=== PATIENT | male | born 1945 | race Caucasian/White ===

== ENCOUNTER 2019-10-06 11:49 | Inpatient (IN) ==
[2019-10-06 12:53] LABS: ALLEN TEST NO; BE 1.2 mmoll (-3.0-3.0); BLOOD TYPE ARTERIAL; HCO3-(ACT) 25.8 mmoll (20.0-26.0); METHB 0.8 % (0.0-1.5); O2(CT) 20.3 mL/dL (15.0-23.0); O2HB 95.6 % (95.0-99.0); PCO2(98.6) 37 mmHg (35-45); PO2(98.6) 85 mmHg (60-100); SAMPLE BLOOD; SAO2 98.1 % (95.0-100.0); THB 15.1 g/dL (11.5-17.4); pH(98.6) 7.44 (7.35-7.45)
[2019-10-06 12:54] LABS: MODALITY ROOM AIR
--- NOTE | 2019-10-06 13:00 | Diag Imaging Result Doc PS360 ---
EXAM: CHEST-1 VIEW 10/06/2019 HISTORY: shortness of breathing TECHNIQUE: Erect AP upright at 1253 COMMENT: There are bilateral pleural effusions. There are no previous studies. There is atelectasis versus pneumonia in the left lower lobe. IMPRESSION: Bilateral pleural effusions and left lower lobe pneumonia. Electronically signed by Van Mtz 10/06/2019 12:58 PM
[2019-10-06 13:53] LABS: BASO# 0.04 X1000 (0.0-0.2); BASO% 0.5 % (0.0-0.8); EOS# 0.03 X1000 (0.0-0.7); EOS% 0.4 % (0.0-10.0); HEMOGLOBIN 14.2 g/dL (14.0-18.0); LYMPH# 0.83 X1000 (1.2-3.4); LYMPH% 10.2 % (20.5-51.1); MCHC 32.3 g/dL (33-37); MCV 86.6 FL (81-99); MONO# 0.63 X1000 (0.11-0.59); MONO% 7.7 % (1.7-9.3); MPV 11.4 FL (7.4-10.4); NEUT# 6.63 X1000 (1.4-6.5); NEUT% 81.2 % (42.2-75.2); PLT 201 X1000 (130-400); RBC 5.08 XMIL (4.7-6.1); RDW 13.7 % (11.5-14.5); WBC 8.16 X1000 (4.8-10.8)
[2019-10-06 14:16] LABS: AGAP 13; ALB/GLOB RATIO 2.2; ALBUMIN 3.9 g/dL (3.5-5.0); ALKALINE PHOSPHATASE 52 U/L (32-122); BUN 18 mg/dL (8-22); CALCIUM 9.4 mg/dL (8.8-10.2); CHLORIDE 97 mmol/L (98-107); COSMO 278; CREATININE 1.1 mg/dL (0.7-1.2); ESTIMATED GFR > 60; GLUCOSE 138 mg/dL (70-104); GOT 21 U/L (10-34); GPT 18 U/L (10-44); POTASSIUM 5.4 mmol/L (3.5-5.1); SODIUM 137 mmol/L (136-145); TCO2 27 mmol/L (25-35); TOTAL BILIRUBIN 0.52 mg/dL (0.20-1.00); TOTAL PROTEIN 5.7 g/dL (6.3-8.3)
[2019-10-06] MEDS ORDERED: ROCEPHIN 1 GM in NS 50 ML IV ONE (14:27)
[2019-10-06] MEDS ORDERED: LEVAQUIN 500 MG/D5W 500 MG/100 ML IVPB IV ONE (14:28)
[2019-10-06] MEDS ORDERED: LASIX IV ONE ×2 (14:29→16:55)
[2019-10-06] MEDS ORDERED: TOPROL XL PO SCH (15:00)
[2019-10-06] MEDS: ASPIRIN EC PO SCH (15:45)
[2019-10-06] MEDS: MUCINEX DM PO SCH ×2 (15:45→20:40)
--- NOTE | 2019-10-06 15:57 | EKG Report ---
Test Performed on : 10/06/2019 3:29:36 PM Test Reason : elevated troponin Blood Pressure : / mmHG Vent. Rate : 114 BPM Atrial Rate : 114 BPM P-R Int : 162 ms QRS Dur : 086 ms QT Int : 348 ms P-R-T Axes : 066 -08 088 degrees QTc Int : 479 ms Sinus tachycardia. Minimal voltage criteria for LVH, may be normal variant Anterior infarct , age undetermined Abnormal ECG Confirmed by Glenn BUTLER, Cristhian ([id number]) on 10/09/2019 8:24:11 AM
--- NOTE | 2019-10-06 19:53 | ECHO REPORT ---
ORDER DATE: 10/06/2019 INDICATION: A 74-year-old male with chest pain, a patient of Dr. Tsai. M-MODE MEASUREMENTS: Left ventricle end diastole: 6.3. Left ventricle end systole: 6.0. Posterior wall: 0.7. Interventricular septum: 0.7. Left atrium: 3.7. Aortic diameter: 3.0. SUMMARY OF 2-DIMENSIONAL IMAGIN. The study is difficult. The left ventricular chamber is markedly enlarged. Left ventricular systolic function is severely impaired, estimated at 26%. Impairment is lower. 2. The mitral valve shows a moderate degree of regurgitation. 3. Pulsed wave Doppler of mitral inflow shows a pseudonormal pattern with a tall E-wave, short A- wave, and a short deceleration time. 4. Tissue Doppler of septal and lateral mitral annulus averages 4 cm. There is impaired left ventricular relaxation and elevation of left atrial pressure consistent with significant diastolic dysfunction. The tricuspid valve shows a mild to moderate degree of regurgitation. Pulmonary pressure is estimated at 36 to 41 mmHg. 5. The pulmonic valve shows a mild degree of regurgitation. 6. The aortic valve opens normally. Color flow mapping indicates a mild degree of regurgitation. 7. There is no pericardial effusion, no mass, and no thrombus. 8. The left atrium is moderately enlarged. 9. The right-sided chambers are also mildly to moderately enlarged. 10.There is a pleural effusion noted. 11.The aortic valve has 3 cusps. The cardiac output appears to be decreased. Clinical correlation recommended. cc: MD Johnny Manzanares MD
[2019-10-06] MEDS: TOPROL XL PO SCH (20:40)
[2019-10-06] MEDS: LOVENOX SUBQ SCH (20:40)
[2019-10-07 00:35] LABS: URINE SOURCE CLEAN CATCH
[2019-10-07 00:51] LABS: BILIRUBIN URINE NEGATIVE (NEGATIVE); BLOOD URINE NEGATIVE (NEGATIVE); COLOR STRAW; GLUCOSE URINE NEGATIVE (NEGATIVE); KETONE URINE TRACE mg/dL (NEGATIVE); LEUKOCYTES URINE NEGATIVE (NEGATIVE); NITRITE URINE NEGATIVE (NEGATIVE); PH URINE 6.5; PROTEIN URINE NEGATIVE (NEGATIVE); SP GRAVITY URINE 1.012; TURBIDITY URINE CLEAR (CLEAR); UROBILINOGEN URINE NORMAL (NORMAL)
[2019-10-07 00:53] LABS: UR EPITHELIAL CELLS <10 /HPF (<10); URINE BACTERIA NEGATIVE /HPF; URINE RBC <10 /HPF (<10); URINE WBC <10 /HPF (<10)
--- NOTE | 2019-10-07 01:40 | HISTORY AND PHYSICAL ---
HISTORY OF PRESENT ILLNESS: A 74-year-old, white gentleman, came for shortness of breath. The patient was not doing well over 2 weeks. The patient had chest congestion, cough, shortness of breath. The patient went to urgent care. He was told he had mild pneumonia. The patient was given injection and some antibiotics which he was taking. The patient felt some better, but then again, he was getting sick. The patient claims he never got completely well. He was feeling weak. He went back to urgent care, given another round of antibiotics and injection. The patient claims he was not getting his strength back. His oral intake was poor. The patient was getting short of breath with minimal exertion. He came to see me today. I evaluated patient. After detailed history and examination, I decided to admit the patient for further care. The patient was getting short of breath with minimal exertion. The patient did have decreased air entry, bilateral leg swelling, more suggestive of congestive heart failure. The patient claims he had unquantified weight loss, poor appetite. He denied any typical chest pain. No high-grade fever or chills. No nausea or vomiting. No dysuria or hematuria. No dysphagia or odynophagia. No runny nose, stuffy nose, sinus drainage. Denied pleuritic type of chest pain. The patient is vague and poor historian. No hemoptysis, hematemesis, bleeding per rectum. No further history available at this time. ALLERGIES: Prednisone. MEDICATIONS: The patient was on some antibiotics which he did not bring. PAST MEDICAL HISTORY: Recent pneumonia and upper respiratory tract infection. SOCIAL HISTORY: , lives with the . Nonsmoker. Denied alcohol or substance abuse. FAMILY HISTORY: Significant for mother at age 91, with diabetes. She had some heart disease and cancer. The patient had a brother with diabetes, stroke, and pneumonia. PERSONAL HISTORY: . Nonsmoker. Denied alcohol or substance abuse. 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 REVIEW OF SYSTEMS: As per HPI, otherwise unobtainable. PHYSICAL EXAMINATION: GENERAL: Elderly white gentleman in mild distress. VITAL SIGNS: Blood pressure 156/98, pulse 105, respirations 16, temperature 97.6 degrees, O2 saturation was 98%. SKIN: Senile turgor. HEENT: Head atraumatic, normocephalic. Spreckels conjunctivae, anicteric sclerae. Extraocular muscle movement normal. Fundus cannot be penetrated. Good oral hygiene. No tonsillopharyngeal congestion or exudate. Ears and nose benign. NECK: Supple. No JVD, thyromegaly, or lymphadenopathy. CHEST: Bibasilar crepitation. Decreased air entry of both bases. Few inspiratory crepitations, left lower lung field. CARDIOVASCULAR: S1 and S2 heard. No gallop or thrill. ABDOMEN: Soft, globular. Bowel sounds present. EXTREMITIES: No cyanosis, clubbing. Bilateral leg swelling. CENTRAL NERVOUS SYSTEM: Alert, awake, able to move all 4 limbs. MUSCULOSKELETAL: No evidence of acute synovitis. LABORATORY AND DIAGNOSTIC DATA: Hemoglobin 14.2, hematocrit 44, WBC count 8.16, platelet count 201,000. PTT 32. D-dimer was 0.86. Blood gas, pH 7.44, pCO2 of 37, PO2 of 85. Potassium 5.4. Troponin was 0.311, minimally elevated. ProBNP was 5326. Echocardiogram, official result is pending. Chest x-ray revealed bilateral pleural effusion, left lower lobe pneumonia. The patient's EKG revealed sinus tachycardia, minimal voltage criteria for LVH, anterior infarct age undetermined. ASSESSMENT: Patient admitted with chest congestion, shortness of breath. Chest x-ray revealed left lower lobe pneumonia. Other problems include elevated proBNP, shortness of breath, and leg swelling suggestive of uncompensated congestive heart failure most likely systolic. Patient does have elevated troponin. We are going to check serial troponin level to see the trend. Other problems include hypertension. PLAN: Admit the patient. IV antibiotics, pulmonary toilet, aspirin, beta jovanny. I am going to add a small dose of ARB. Overall plan discussed at length with the patient and the , and they are in agreement. cc: Johnny Tsai MD
[2019-10-07 06:18] LABS: HEMATOCRIT 42.6 % (42.0-52.0); MCH 28.3 PG (27-31); MCHC 32.9 g/dL (33-37); MCV 86.2 FL (81-99); MPV 11.4 FL (7.4-10.4); RBC 4.94 XMIL (4.7-6.1); RDW 13.9 % (11.5-14.5); WBC 7.98 X1000 (4.8-10.8)
[2019-10-07 07:11] LABS: AGAP 13; ALB/GLOB RATIO 1.3; ALBUMIN 3.3 g/dL (3.5-5.0); ALKALINE PHOSPHATASE 46 U/L (32-122); BUN 19 mg/dL (8-22); CALCIUM 9.2 mg/dL (8.8-10.2); CHLORIDE 94 mmol/L (98-107); COSMO 270; CREATININE 1.1 mg/dL (0.7-1.2); ESTIMATED GFR > 60; GLUCOSE 97 mg/dL (70-104); GOT 21 U/L (10-34); GPT 18 U/L (10-44); MAGNESIUM 2.1 mg/dL (1.5-2.7); PHOSPHORUS 3.7 mg/dL (2.7-4.5); POTASSIUM 3.9 mmol/L (3.5-5.1); SODIUM 134 mmol/L (136-145); TCO2 27 mmol/L (25-35); TOTAL BILIRUBIN 0.46 mg/dL (0.20-1.00); TOTAL PROTEIN 5.9 g/dL (6.3-8.3)
[2019-10-07] MEDS: ASPIRIN EC PO SCH (08:48)
[2019-10-07] MEDS: TOPROL XL PO SCH ×2 (08:48→20:36)
[2019-10-07 08:56] LABS: CHOLESTEROL 128 mg/dL (0-200); HDL 39 mg/dL (35-55); LDL 76 mg/dL; TRIGLYCERIDES 67 mg/dL (39-160); VLDL 13 mg/dL
[2019-10-07] MEDS ORDERED: PRINIVIL PO SCH (09:00)
[2019-10-07] MEDS ORDERED: LASIX IV SCH (09:00)
[2019-10-07] MEDS: PROTONIX PO SCH (09:35)
[2019-10-07] MEDS: MILK OF MAGNESIA PO SCH (09:35)
[2019-10-07] MEDS: COZAAR PO SCH (12:28)
[2019-10-07] MEDS: ROCEPHIN 1 GM in NS 50 ML IV SCH (15:36)
--- NOTE | 2019-10-07 17:50 | PROGRESS NOTE ---
DATE: 10/07/2019 SUBJECTIVE: Mr. Lopez is doing better. No typical chest pain. Leg swelling is improving. No nausea or vomiting. Denied any diarrhea. Complaining of being constipated, mild epigastric discomfort. No high-grade fever or chills. No runny nose, stuffy nose, or sinus drainage. No dysuria or hematuria. Patient admitted with shortness of breath. The patient's troponin was elevated. Patient found to be in congestive heart failure. Echo did reveal ejection fraction of 26%, suggestive of systolic heart failure and also diastolic heart failure. OBJECTIVE: Vital signs: Noted. Neck: Supple. No JVD. Lungs: Better air entry at both lung bases. Cardiovascular: S1 and S2 heard. Systolic murmur 2/6 at the apex. Abdomen: Soft, nontender. Bowel sounds present. Extremities: Leg swelling is improving. Central nervous system: Alert, awake, able to move all 4 limbs. LABORATORY DATA: Done today: WBC count 7.98, hemoglobin 14, hematocrit 42.6, platelet count 206,000. D-dimer was 0.86. Sodium 134, potassium 3.9. Troponin 0.318. CONSIDERATION: Congestive heart failure both systolic and diastolic. Elevated troponin could be due to congestive heart failure. Chest x-ray did reveal pneumonia. I am going to get lipid panel from the blood in the lab. Bilateral leg swelling improving. PLAN: Overall plan discussed at length with the patient and . They are in agreement. cc: Johnny Tsai MD MTDD
[2019-10-07] MEDS: LOVENOX SUBQ SCH (20:36)
[2019-10-07] MEDS: KLONOPIN PO SCH (22:19)
--- NOTE | 2019-10-08 01:34 | CARDIOLOGY CONSULTATION ---
DATE: 10/07/2019 IMPRESSION: 1. Acute biventricular systolic heart failure. 2. Severe cardiomyopathy with left ejection fraction of 25 to 30 percent. Etiology not clear. 3. History of hypertension with very little followup for several years. Echocardiogram suggests left ventricular hypertrophy. 4. Family history of early , probably sudden cardiac . RECOMMENDATIONS: 1. Diurese with IV Lasix. 2. Continue beta-jovanny at low dose. 3. Add low-dose ARB, losartan. 4. Aspirin p.o. daily. 5. Ultimately, patient would benefit from evaluation for underlying coronary disease. Given severity of his cardiomyopathy, it may be better to consider definitive evaluation with cardiac catheterization/coronary angiography once his congestive heart failure has improved. HISTORY: This 74-year-old, white male, with past history of hypertension, was admitted with progressive dyspnea, orthopnea, and peripheral swelling. He has been found to have evidence of congestive heart failure and echocardiography indicates severely decreased left ventricular ejection fraction of 25 to 30 percent. He has had elevated blood pressure noted on what few office visits he has had in the past. He has not seen a physician for at least 5 years. About 6 weeks ago, he started having problems with exertional shortness of breath and peripheral swelling. He also started having problems with orthopnea. He sought evaluation at an urgent care, was thought to have possible pneumonia and was treated for this. However, he has not been improving, had a second visit with an urgent care, and further antibiotic therapy was prescribed. He continued to have dyspnea symptoms, and ultimately came in and was found to have congestive heart failure. There has been no chest pain or anything that sounds like angina. PAST MEDICAL HISTORY: 1. Hypertension in the past. 2. Negative for diabetes or hyperlipidemia. PAST SURGICAL HISTORY: None. ALLERGIES: He is allergic or intolerant to prednisone. MEDICATIONS PRIOR TO ADMISSION: As listed. SOCIAL HISTORY: He is and lives with his . He is a nonsmoker and does not use alcohol. FAMILY HISTORY: Noteworthy in that he has 2 younger brothers who in their early 50s, possibly sudden cardiac . REVIEW OF SYSTEMS: Pulmonary: Noncontributory beyond history of present illness. Specifically, there has been no sputum production. Gastrointestinal: Noncontributory beyond history of present illness. Constitutional: Negative for fever. Remainder of review of systems negative/noncontributory with 14-total systems reviewed. PHYSICAL EXAMINATION: An older white male in no distress. Blood pressure 126/83, heart rate 85, oxygen saturation 98% on nasal cannula oxygen at 2 L/minute.HEENT: Extraocular movements appear intact. Mucous membranes are moist. Neck: Supple. Jugular venous distention is evident, suggesting central venous pressure around 10. Auscultation of the chest reveals bibasilar inspiratory crackles with some diminished breath sounds in the right base. Cardiac: Regular rate and rhythm without appreciable murmur or gallop. Abdomen: Soft. Bowel sounds normal. Extremities: Mild pretibial edema. Neurologic: Alert and fully oriented. Speech is fluent. He moves all 4 extremities equally well. Skin: Warm and dry. Psychiatric: Mood is appropriate. PERTINENT DATA: As 12-lead EKG demonstrates sinus rhythm, left ventricular hypertrophy, cannot exclude previous anterior infarct of undetermined age. LABORATORY DATA: Includes a white blood cell count of 7.98, hematocrit 42.6, hemoglobin 14.0, platelet count 206,000. Sodium 138, potassium 3.9, chloride 94, carbon dioxide 27, BUN 19, creatinine 1.1, glucose 97. Initial troponin T 0.318, followup troponin T 0.371. Pro B- natriuretic peptide level 5326. Triglycerides 67, total cholesterol 128, LDL cholesterol 76, HDL cholesterol 39, VLDL cholesterol 13 . cc: MD Johnny Isaacs MD
[2019-10-08] MEDS: PROTONIX PO SCH (06:02)
[2019-10-08 06:45] LABS: HEMATOCRIT 40.5 % (42.0-52.0); MCH 27.8 PG (27-31); MCHC 32.1 g/dL (33-37); MCV 86.7 FL (81-99); MPV 11.6 FL (7.4-10.4); RBC 4.67 XMIL (4.7-6.1); RDW 13.7 % (11.5-14.5); WBC 7.69 X1000 (4.8-10.8)
[2019-10-08 07:17] LABS: AGAP 11; ALB/GLOB RATIO 1.7; ALBUMIN 3.3 g/dL (3.5-5.0); ALKALINE PHOSPHATASE 43 U/L (32-122); BUN 18 mg/dL (8-22); CHLORIDE 97 mmol/L (98-107); COSMO 279; CREATININE 1.1 mg/dL (0.7-1.2); ESTIMATED GFR > 60; GLUCOSE 85 mg/dL (70-104); GOT 17 U/L (10-34); GPT 14 U/L (10-44); MAGNESIUM 2.3 mg/dL (1.5-2.7); POTASSIUM 3.7 mmol/L (3.5-5.1); SODIUM 139 mmol/L (136-145); TCO2 31 mmol/L (25-35); TOTAL BILIRUBIN 0.49 mg/dL (0.20-1.00); TOTAL PROTEIN 5.2 g/dL (6.3-8.3)
--- NOTE | 2019-10-08 07:41 | Diag Imaging Result Doc PS360 ---
EXAM: CHEST-1 VIEW - 10/08/2019 HISTORY: sob TECHNIQUE: One view chest COMPARISON: 10/06/2019 FINDINGS: Heart size appears within normal limits. There is hazy infiltrate or edema at the right base. There is a small right pleural effusion which may have increased mildly. There is a small left pleural effusion similar to prior. There is no evidence of pneumothorax. IMPRESSION: Hazy infiltrate or edema at right base. Small bilateral pleural effusions. Electronically signed by Antolin Nichols 10/08/2019 7:38 AM
[2019-10-08] MEDS: MILK OF MAGNESIA PO SCH (08:29)
[2019-10-08] MEDS: TOPROL XL PO SCH ×2 (08:30→21:26)
[2019-10-08] MEDS: COZAAR PO SCH (08:30)
[2019-10-08] MEDS: ASPIRIN EC PO SCH (08:30)
--- NOTE | 2019-10-08 10:06 | PROGRESS NOTE ---
DATE: 10/08/2019 SUBJECTIVE: Mr. Ybarra is feeling better. No typical chest pain or palpitation. Orthopnea, shortness of breath is improving. Appreciate Dr. Ramos help managing this patient. No nausea or vomiting. Oral intake is improving. The patient was able to rest well last night. OBJECTIVE: Vital signs noted.Neck: Neck is supple. No JVD. Lungs: Bilateral good air entry present. Few basal crepitations. CVS: S1 and S2 heard. Abdomen: Soft, nontender. Bowel sounds present. Extremities: Leg swelling improved VIOLIN MECHANIC: VIOLIN MECHANIC alert awake. Able to move all 4 limbs. LABORATORY DATA: Done today: Hemoglobin 13 hematocrit 40.5 platelet count 195,000. Electrolytes: BUN 18 creatinine 1.1. CONSIDERATION: 1. Congestive heart failure both systolic and diastolic. 2. Left ventricular hypertrophy by voltage criteria, possible pneumonia. PLAN: Lipid panel was benign. I am going to get. TSH and free T4. Continue rest of the treatment and close observation. Overall plan discussed with the patient and they are in agreement. His chest x-ray done today result reviewed which did reveal hazy infiltrate or edema at the right base. Small bilateral pleural effusions. cc: Johnny Tsai MD
[2019-10-08 10:11] LABS: FREE T4 1.24 ng/dL (0.93-1.70); TSH 4.2 uIUmL (0.27-4.20)
[2019-10-08] MEDS: LASIX IV SCH (10:15)
--- NOTE | 2019-10-08 13:22 | PROGRESS NOTE ---
DATE: 10/08/2019 SUBJECTIVE: Patient relates feeling better with treatment. He denies shortness of breath or chest discomfort on nasal cannula oxygen. He has had no cough. OBJECTIVE: Vital Signs: Blood pressure 109/65, heart rate 82, oxygen saturation 99% on nasal cannula oxygen at 2 L per minute. There is no significant jugular venous distention. Auscultation of the chest reveals scant inspiratory crackles in the bases bilaterally. Cardiac Examination: Reveals a regular rate and rhythm without appreciable murmur or gallop. Extremities are without edema. Laboratory Data: Includes a white blood cell count of 7.69, hematocrit 40.5, hemoglobin 13.0, platelet count 195,000. Sodium 139, potassium 3.7, chloride 97, carbon dioxide 31, BUN 18, creatinine 1.1, glucose 85. Initial troponin T. 0.311 with a followup troponin T of 0.318 and 0.371. Initial CPK 65. IMPRESSION: 1. Acute systolic heart failure, improving with diuresis. 2. Severe cardiomyopathy with left ventricular ejection fraction of 25-30%. 3. Mild elevation in troponins, possibly secondary to acute congestive heart failure but I cannot exclude underlying atherosclerotic coronary disease/myocardial ischemia. 4. Hypertensive cardiovascular disease with left ventricular hypertrophy. RECOMMENDATIONS: 1. Continue diuresis today. 2. Continue metoprolol. 3. Continue aspirin. 4. As patient improves, favor definitive evaluation with cardiac catheterization and selective coronary angiography. The rationale for this approach along with the potential hazards were discussed with the patient and he wished to proceed. Consider pursuing this perhaps Wednesday. cc: MD Johnny Isaacs MD
[2019-10-08] MEDS: ROCEPHIN 1 GM in NS 50 ML IV SCH ×2 (14:56→16:08)
[2019-10-08] MEDS: LOVENOX SUBQ SCH (21:26)
[2019-10-08] MEDS: KLONOPIN PO SCH (21:26)
[2019-10-09] MEDS: PROTONIX PO SCH (06:03)
--- NOTE | 2019-10-09 07:43 | PROGRESS NOTE ---
DATE: 10/09/2019 SUBJECTIVE: Mr. Lopez is doing better. Oral intake improving. No typical chest pain or palpitations. The patient was able to ambulate better yesterday. Complaining of being constipated. The patient is scheduled to have an arteriogram tomorrow. OBJECTIVE: Vital Signs: Noted. Neck: Supple. No JVD. Lungs: Bibasilar crepitations. Heart: A 2/6 systolic murmur at the apex. Abdomen: Soft, globular. Bowel sounds present. GYMNASIUM TEACHER: Alert, awake. Answering questions fairly well. Laboratory Data: Done yesterday noted. CONSIDERATIONS: 1. Both systolic and diastolic heart failure. 2. Possible pneumonia. 3. Cardiomyopathy. PLAN: The patient is scheduled to have arteriogram tomorrow. Risk of contrast induced nephropathy discussed with the patient. We will ambulate the patient in the room and hallway. Because of low blood pressure, I am going to hold the Lasix today. cc: Johnny Tsai MD
[2019-10-09] MEDS: LASIX IV SCH (09:13)
[2019-10-09] MEDS: ASPIRIN EC PO SCH (09:13)
[2019-10-09] MEDS: COZAAR PO SCH (09:14)
[2019-10-09] MEDS: MILK OF MAGNESIA PO SCH (09:14)
[2019-10-09] MEDS: TOPROL XL PO SCH ×2 (09:14→22:03)
--- NOTE | 2019-10-09 15:01 | PROGRESS NOTE ---
DATE: 10/09/2019 SUBJECTIVE: Patient reports feeling much better and denies any shortness of breath or chest discomfort on room air. OBJECTIVE: Vital Signs: Blood pressure 109/57, heart rate 78, oxygen saturation 100% on room air. Neck: There is no significant jugular venous distention. Chest: Clear to auscultation bilaterally. Cardiac Exam: Reveals a regular rate and rhythm without appreciable murmur or gallop. Extremities: There is no evidence of peripheral edema. LABORATORY DATA: Includes a white blood cell count of 7.69, hematocrit 40.5, hemoglobin 13.0, platelet count 195. Sodium 139, potassium 3.7, chloride 97, carbon dioxide 31. BUN 18, creatinine 1.1, magnesium 2.3. IMPRESSION: 1. Acute systolic heart failure improved with diuresis. 2. Severe cardiomyopathy with left ventricular ejection fraction 25 to 30 percent. 3. Mild elevation in troponins, possibly secondary to acute congestive heart failure, but I cannot exclude underlying atherosclerotic coronary disease/myocardial ischemia. 4. Hypertensive cardiovascular disease. RECOMMENDATIONS: 1. Will continue metoprolol and aspirin. 2. Reduce Lasix as further diuresis does not appear to be needed at this time. 3. Definitive evaluation of patient's cardiomyopathy recommended with left heart catheterization and selective coronary angiography. The rationale for this approach along with potential hazards reviewed with the patient and his , and he wished to proceed. cc: MD Johnny Isaacs MD
[2019-10-09] MEDS: ROCEPHIN 1 GM in NS 50 ML IV SCH (16:04)
[2019-10-09 20:07] LABS: AGAP 6; BUN 22 mg/dL (8-22); CALCIUM 8.7 mg/dL (8.8-10.2); CHLORIDE 97 mmol/L (98-107); COSMO 282; CREATININE 1.1 mg/dL (0.7-1.2); ESTIMATED GFR > 60; GLUCOSE 90 mg/dL (70-104); POTASSIUM 4.1 mmol/L (3.5-5.1); SODIUM 140 mmol/L (136-145); TCO2 37 mmol/L (25-35)
[2019-10-09] MEDS: KLONOPIN PO SCH (22:03)
[2019-10-09] MEDS: LOVENOX SUBQ SCH (22:03)
[2019-10-10] MEDS: PROTONIX PO SCH (06:02)
[2019-10-10 06:19] LABS: BASO# 0.06 X1000 (0.0-0.2); BASO% 0.8 % (0.0-0.8); EOS# 0.25 X1000 (0.0-0.7); EOS% 3.3 % (0.0-10.0); HEMATOCRIT 41.7 % (42.0-52.0); HEMOGLOBIN 13.4 g/dL (14.0-18.0); INR 1.02; LYMPH# 1.44 X1000 (1.2-3.4); LYMPH% 18.8 % (20.5-51.1); MCH 27.9 PG (27-31); MCHC 32.1 g/dL (33-37); MCV 86.9 FL (81-99); MONO# 0.85 X1000 (0.11-0.59); MONO% 11.1 % (1.7-9.3); MPV 11.6 FL (7.4-10.4); NEUT# 5.08 X1000 (1.4-6.5); PLT 184 X1000 (130-400); PROTIME 13.5 Seconds (11.0-16.0); RDW 13.7 % (11.5-14.5); WBC 7.68 X1000 (4.8-10.8)
[2019-10-10 06:20] LABS: PTT 33.4 Seconds (22.3-41.8)
--- NOTE | 2019-10-10 06:24 | EKG Report ---
Test Performed on : 10/10/2019 06:05:13 AM Test Reason : [facility] Blood Pressure : / mmHG Vent. Rate : 076 BPM Atrial Rate : 076 BPM P-R Int : 172 ms QRS Dur : 086 ms QT Int : 410 ms P-R-T Axes : 056 -14 135 degrees QTc Int : 461 ms Normal sinus rhythm. Possible Left atrial enlargement Anterior infarct (cited on or before 06-OCT-2019) Abnormal ECG When compared with ECG of 06-OCT-2019 15:29, Vent. rate has decreased BY 38 BPM Nonspecific T wave abnormality has replaced inverted T waves in Lateral leads Confirmed by Glenn BUTLER, Cristhian ([id number]) on 10/10/2019 8:41:07 AM
[2019-10-10 06:40] LABS: AGAP 11; ALB/GLOB RATIO 2.1; ALBUMIN 3.4 g/dL (3.5-5.0); ALKALINE PHOSPHATASE 48 U/L (32-122); BUN 21 mg/dL (8-22); CALCIUM 8.5 mg/dL (8.8-10.2); CHLORIDE 98 mmol/L (98-107); COSMO 282; CREATININE 1.1 mg/dL (0.7-1.2); ESTIMATED GFR > 60; GLUCOSE 99 mg/dL (70-104); GOT 20 U/L (10-34); GPT 18 U/L (10-44); MAGNESIUM 2.4 mg/dL (1.5-2.7); POTASSIUM 4.2 mmol/L (3.5-5.1); SODIUM 140 mmol/L (136-145); TCO2 31 mmol/L (25-35); TOTAL BILIRUBIN 0.27 mg/dL (0.20-1.00)
[2019-10-10] MEDS: TOPROL XL PO SCH (08:22)
[2019-10-10] MEDS: MILK OF MAGNESIA PO SCH (08:22)
[2019-10-10] MEDS: COZAAR PO SCH (08:22)
[2019-10-10] MEDS: ASPIRIN EC PO SCH (08:22)
[2019-10-10] MEDS ORDERED: HEPARIN 1000 UNITS/NS 2,000 UNIT/1,000 ML IV.SOLN ONE (08:24)
[2019-10-10] MEDS ORDERED: NS 500 ML ONE (08:52)
[2019-10-10] MEDS ORDERED: ANESTHESIA PB SET 88 IN 5742 ONE (08:52)
[2019-10-10] MEDS ORDERED: VERSED ONE (08:52)
[2019-10-10] MEDS ORDERED: MORPHINE ONE (08:52)
--- NOTE | 2019-10-10 10:10 | PROGRESS NOTE ---
DATE: 10/10/2019 SUBJECTIVE: Mr. Lopez is doing fair. He denied any fever or chills. No chest pain, palpitations. Shortness of breath is improving. No nausea or vomiting. The patient is scheduled to have cardiac catheterization today. OBJECTIVE: His vital signs noted. Blood pressure low normal. I am going to hold IV Lasix today. Neck is supple. No JVD. Lungs: Bilateral good air entry present. CVS: S1 and S2 heard. Abdomen: Soft, nontender. Bowel sounds present. TOLL LINEMAN: Alert, awake. Able to move all 4 limbs. CONSIDERATION: 1. Both systolic and diastolic heart failure. 2. Possible pneumonia. 3. Constipation. LABORATORY DATA: Done today noted. PLAN: The patient is scheduled to have cardiac catheterization. I am going to change Lasix to p.o. after reviewing catheterization results. Encourage ambulation. If clinical condition permits and when okay with facilities planner, we will plan discharging patient home soon. cc: Johnny Tsai MD
[2019-10-10] MEDS ORDERED: NS 1,000 ML IV SCH (11:00)
--- NOTE | 2019-10-10 11:11 | EKG Report ---
Test Performed on : 10/10/2019 10:49:20 AM Test Reason : Post heart cath Blood Pressure : / mmHG Vent. Rate : 079 BPM Atrial Rate : 079 BPM P-R Int : 170 ms QRS Dur : 088 ms QT Int : 404 ms P-R-T Axes : 058 -13 154 degrees QTc Int : 463 ms Normal sinus rhythm. Possible Left atrial enlargement Left ventricular hypertrophy T wave abnormality, consider lateral ischemia Prolonged QT Abnormal ECG When compared with ECG of 10-OCT-2019 06:05, T wave inversion now evident in Lateral leads Confirmed by Glenn BUTLER, Cristhian ([id number]) on 10/11/2019 8:33:58 AM
[2019-10-10 11:22] VITALS: BP 109/64
[2019-10-10] MEDS ORDERED: NITROGLYCERIN 0.4 MG/HR PATCH TD SCH (12:00)
[2019-10-10] MEDS ORDERED: LASIX PO SCH (13:00)
--- NOTE | 2019-10-11 01:07 | CARDIAC CATH REPORT ---
PROCEDURE NAME: - PROCEDURE PERFORMED: Left heart catheterization with selective coronary angiography and left ventriculography. ENTRY SITE: Right femoral artery. CATHETERS USED: A 5-[place]an JL4, 3DRC, and angled pigtail. TECHNIQUE: After intravenous sedation with Versed and morphine, local anesthesia with lidocaine was applied over the right femoral artery. Arterial access was established with placement of a 5- [place] sheath in the right femoral artery using modified Seldinger technique. Selective coronary angiography was subsequently performed, followed by left heart catheterization and left ventriculography. Upon completion of the procedure, the arterial sheath was removed from the right femoral artery and hemostasis facilitated with manual pressure. The patient tolerated the procedure without apparent complications. FINDINGS: Hemodynamics: Aortic pressure 107/49, with a mean of 73. Left ventricular pressure 97/80, P of 28. Comments on hemodynamics: There is no significant gradient across the aortic valve demonstrated on pullback from the left ventricle. ANGIOGRAPHY: 1. Left ventriculogram: The left ventricle is moderately dilated with akinesis of the mid to apical anterior wall and apex. The very apex appears mildly dyskinetic. There is also akinesis of the basal inferior wall seen on MCNAMARA projection. The mid inferior wall is mildly hypokinetic. The estimated left ventricular ejection fraction appears to be approximately 20%. There is mild to moderate mitral regurgitation. 2. Left main coronary: The left main coronary artery is free of significant coronary stenosis. 3. Left anterior descending coronary artery: The left anterior descending coronary artery demonstrates subtotal stenosis after the proximal one-third of the vessel. The left anterior descending coronary artery gives rise to a medium-sized diagonal branch proximally. There is also a large septal filler feeder arising from the proximal left anterior descending coronary artery, which demonstrates a severe ostial stenosis in the septal filler feeder. 4. Left circumflex coronary artery: The left circumflex coronary artery demonstrates a focal moderate (70%) stenosis at midvessel before origin of obtuse marginal. The obtuse marginal demonstrates a segment of mild (20%) atherosclerotic narrowing. 5. Right coronary artery: The dominant right coronary artery demonstrates a severe (greater than 90%) stenosis after the proximal one-third of the vessel. CONCLUSIONS: 1. Severely depressed left ventricular systolic function with akinesis of the anterior wall and apex, mild dyskinesis of the very apex, and akinesis of the basal inferior wall. 2. Mild to moderate mitral regurgitation. 3. Right dominant coronary anatomy as described, with subtotal stenosis after the proximal one- third of the left anterior descending coronary, moderate segmental stenosis in mid left circumflex coronary, and severe stenosis in the dominant right coronary after the proximal one- third of the vessel. RECOMMENDATIONS: 1. Cardiothoracic Surgery consultation regarding potential merits of coronary bypass surgery. 2. The patient will also be seen by Interventional Cardiology to consider possible percutaneous options. cc: MD Johnny Isaacs MD
--- NOTE | 2019-10-12 07:42 | DISCHARGE SUMMARY ---
ADMISSION DATE: 10/07/2019 DISCHARGE DATE: 10/10/2019 FINAL DISCHARGE DIAGNOSES: 1. Non ST elevation myocardial infarction. 2. Severe systolic heart failure. 3. Diastolic heart failure. 4. Coronary artery disease. 5. Possible pneumonia. Mr. Lopez is a 74-year-old white gentleman, admitted with shortness of breath, chest congestion, cough. The patient was getting treatment for pneumonia in urgent care. I evaluated patient in the office. He was not getting any better. We decided to admit the patient for further care. Workup in the hospital did reveal significant biventricular failure. Also left lower lobe pneumonia. The patient was treated with IV antibiotics, IV Lasix. Cardiology consult obtained with Dr. Duran. After stabilization, the patient underwent cardiac cath yesterday which did reveal significantly diminished both ventricular function, mild to moderate mitral regurgitation and significant coronary artery disease requiring further cardiac evaluation. The patient was transferred to [facility] for further evaluation and care. LABORATORY DATA: Done yesterday, hemoglobin 13.4, hematocrit 41.7, platelet count 184,000, WBC count 7.68. PT/INR 1.02, PTT was 33.4. Electrolytes were fairly benign. Troponin was elevated on admission 0.318. Urinalysis results reviewed. Echocardiogram did reveal estimated left ventricular systolic function, 26%. Left ventricular diastolic dysfunction. Mitral regurgitation. PLAN: Overall plan discussed with patient and . They are in agreement. cc: Johnny Tsai MD
== END 2019-10-10 15:19 | disposition short-term general hospital (02) | DRG 280 ==
LOC: DIRADM → EDIPHOLD 11:49 → 1N 14:35 → 2N 15:39
PROVIDERS: ADMIT Internal Medicine; ATTEND Internal Medicine